=== PATIENT | male | born 1945 | race Caucasian/White ===

== ENCOUNTER 2017-04-09 15:22 | Inpatient (IN) ==
[~2017-04-09 15:22] MED LIST: ACETAMINOPHEN 325 MG TABLET PO PRN; DEXTROSE 50% 25 GM/50 ML VIAL IV PRN; GLUCAGON 1 MG VIAL IM PRN; ONDANSETRON 4 MG/2 ML VIAL IV PRN; metroNIDAZOLE INJ 500 MG in PREMIX 1 EACH IV SCH
[2017-04-09] MEDS ORDERED: ONDANSETRON 4 MG/2 ML VIAL IV PRN (17:35)
[2017-04-09] MEDS ORDERED: ACETAMINOPHEN 325 MG TABLET PO PRN (17:35)
[2017-04-09] MEDS ORDERED: HYDROmorphone 2 MG/1 ML VIAL IV PRN (17:35)
[2017-04-09] MEDS ORDERED: GLUCAGON 1 MG VIAL IM PRN (17:35)
[2017-04-09] MEDS ORDERED: DEXTROSE 50% 25 GM/50 ML VIAL IV PRN (17:35)
[2017-04-09 18:30] LABS: Basophils % 0.5 % (0.0-0.8); Eosinophils # 0.1 10*3/uL (0.0-0.87); Eosinophils % 1.6 % (0.00-10.9); Hematocrit 41.2 VOL% (42.0-52.0); Hemoglobin 13.7 GM/DL (14.0-18.0); Immature Granulocytes % 0.3 %; Immature Granulocytes Absolute 0.02 #; Lymphocytes # 1.3 10*3/uL (1.4-4.0); Lymphocytes % 17.9 % (21.2-54.2); Mean Corpuscular HGB Conc 33.3 GM/DL (32-36); Mean Corpuscular Hemoglobin 29 PG (27-34); Mean Corpuscular Volume 88.2 FL (87-102); Mean Platelet Volume 12.5 FL (9.6-12.0); Monocytes # 0.6 10*3/uL (0.11-0.8); Monocytes % 8.7 % (1.7-12.7); Neutrophils # 5.2 10*3/uL (1.4-7.4); Platelet Count 146 T/CUMM (130-400); Red Blood Count 4.67 MC/CUMM (3.8-5.5); Red Cell Distribution Width 15.6 % (9.3-17.3); White Blood Count 7.3 T/CUMM (4-12)
[2017-04-09 19:10] LABS: Albumin 3.5 G/DL (3.4-5.0); Bilirubin,Total 1.3 MG/DL (0.2-1.0); Potassium 4.8 MMOL/L (3.5-5.1); Total Protein 7.7 G/DL (6.4-8.3)
[2017-04-09] MEDS: SODIUM CHLORIDE 0.45% 1,000 ML IV SCH (19:43)
[2017-04-09] MEDS: metroNIDAZOLE INJ 500 MG in PREMIX 1 EACH IV SCH (19:43)
[2017-04-09] MEDS: PIPERACILLIN/TAZOBACTAM 3,375 MG in SODIUM CHLORIDE 0.9% 100 ML IV SCH (21:59)
[2017-04-09] MEDS: CIPROFLOXACIN 500 MG TABLET PO SCH (21:59)
[2017-04-09] MEDS: DOCUSATE SODIUM 100 MG CAPSULE PO SCH (21:59)
[2017-04-09] MEDS: INSULIN REGULAR 100 UNIT/ML SUBCUT SCH (22:09)
[2017-04-09] MEDS: INSULIN ASPART PROTAMINE/ASPART 70/30 100 UNIT/ML SUBCUT SCH (22:09)
[2017-04-10] MEDS: metroNIDAZOLE INJ 500 MG in PREMIX 1 EACH IV SCH ×3 (01:47→18:39)
[2017-04-10] MEDS: PIPERACILLIN/TAZOBACTAM 3,375 MG in SODIUM CHLORIDE 0.9% 100 ML IV SCH ×3 (04:29→21:55)
[2017-04-10] MEDS ORDERED: ceFAZolin 2,000 MG in PREMIX 1 EACH IV ONE (06:00)
[2017-04-10] MEDS: SODIUM CHLORIDE 0.45% 1,000 ML IV SCH ×3 (06:42→18:38)
[2017-04-10] MEDS: LEVOTHYROXINE 50 MCG TABLET PO SCH (06:43)
[2017-04-10] MEDS: INSULIN REGULAR 100 UNIT/ML SUBCUT SCH ×4 (09:00→21:50)
[2017-04-10] MEDS ORDERED: PANTOPRAZOLE 40 MG TABLET PO SCH (09:00)
[2017-04-10] MEDS: INSULIN ASPART PROTAMINE/ASPART 70/30 100 UNIT/ML SUBCUT SCH ×2 (09:24→21:55)
[2017-04-10] MEDS: ASPIRIN CHEW 81 MG TABLET PO SCH (09:24)
[2017-04-10] MEDS: PANTOPRAZOLE 40 MG TABLET PO SCH (09:29)
[2017-04-10] MEDS: LISINOPRIL 2.5 MG TABLET PO SCH (09:29)
[2017-04-10] MEDS ORDERED: BUPIVACAINE 0.25% 50 ML VIAL ONE ×2 (13:08→13:33)
[2017-04-10] MEDS ORDERED: PROPOFOL 200 MG/20 ML VIAL IV ONE (14:23)
[2017-04-10] MEDS ORDERED: fentaNYL 100 MCG/2 ML VIAL ONE (14:23)
[2017-04-10] MEDS ORDERED: MIDAZOLAM 2 MG/2 ML VIAL ONE ×2 (14:24)
[2017-04-10] MEDS ORDERED: HYDROmorphone 2 MG/1 ML VIAL IV PRN (14:29)
[2017-04-10] MEDS ORDERED: ONDANSETRON 4 MG/2 ML VIAL IV PRN (14:29)
[2017-04-10] MEDS: CIPROFLOXACIN 500 MG TABLET PO SCH ×2 (16:35→21:55)
[2017-04-10] MEDS: PIOGLITAZONE 45 MG TABLET PO SCH (16:35)
[2017-04-10] MEDS: SIMVASTATIN 40 MG TABLET PO SCH (16:36)
[2017-04-10] MEDS: DOCUSATE SODIUM 100 MG CAPSULE PO SCH ×2 (16:36→21:55)
[2017-04-10] MEDS: FUROSEMIDE 20 MG TABLET PO SCH (16:36)
[2017-04-10] MEDS: ceFAZolin 2,000 MG in PREMIX 1 EACH IV SCH (21:51)
[2017-04-11] MEDS: SODIUM CHLORIDE 0.45% 1,000 ML IV SCH ×3 (02:56→19:17)
[2017-04-11] MEDS: metroNIDAZOLE INJ 500 MG in PREMIX 1 EACH IV SCH ×3 (02:56→17:57)
[2017-04-11] MEDS: PIPERACILLIN/TAZOBACTAM 3,375 MG in SODIUM CHLORIDE 0.9% 100 ML IV SCH ×3 (05:18→20:57)
[2017-04-11] MEDS: ceFAZolin 2,000 MG in PREMIX 1 EACH IV SCH (05:22)
[2017-04-11] MEDS: LEVOTHYROXINE 50 MCG TABLET PO SCH (05:45)
[2017-04-11 06:48] LABS: Basophils % 0.8 % (0.0-0.8); Eosinophils # 0.1 10*3/uL (0.0-0.87); Eosinophils % 2.3 % (0.00-10.9); Hematocrit 38.9 VOL% (42.0-52.0); Immature Granulocytes % 0.8 %; Immature Granulocytes Absolute 0.04 #; Lymphocytes # 1.1 10*3/uL (1.4-4.0); Lymphocytes % 19.7 % (21.2-54.2); Mean Corpuscular HGB Conc 33.4 GM/DL (32-36); Mean Corpuscular Hemoglobin 30 PG (27-34); Mean Corpuscular Volume 88.4 FL (87-102); Mean Platelet Volume 12.5 FL (9.6-12.0); Monocytes # 0.4 10*3/uL (0.11-0.8); Monocytes % 8.1 % (1.7-12.7); Neutrophils # 3.7 10*3/uL (1.4-7.4); Neutrophils % 68.3 % (38.7-73.9); Platelet Count 123 T/CUMM (130-400); Red Cell Distribution Width 15.5 % (9.3-17.3); White Blood Count 5.3 T/CUMM (4-12)
[2017-04-11 07:14] LABS: Calcium 8.9 MG/DL (8.5-10.1); Osmolality,Calculated 276.2 MOS/KG (273-304); Potassium 4.6 MMOL/L (3.5-5.1)
[2017-04-11] MEDS: INSULIN REGULAR 100 UNIT/ML SUBCUT SCH ×4 (09:50→21:01)
[2017-04-11] MEDS: LISINOPRIL 2.5 MG TABLET PO SCH (09:51)
[2017-04-11] MEDS: CIPROFLOXACIN 500 MG TABLET PO SCH ×2 (09:52→20:54)
[2017-04-11] MEDS: DOCUSATE SODIUM 100 MG CAPSULE PO SCH ×2 (09:52→20:54)
[2017-04-11] MEDS: PANTOPRAZOLE 40 MG TABLET PO SCH (09:52)
[2017-04-11] MEDS: ASPIRIN CHEW 81 MG TABLET PO SCH (09:52)
[2017-04-11] MEDS: FUROSEMIDE 20 MG TABLET PO SCH (09:52)
[2017-04-11] MEDS: SIMVASTATIN 40 MG TABLET PO SCH (09:52)
[2017-04-11] MEDS: INSULIN ASPART PROTAMINE/ASPART 70/30 100 UNIT/ML SUBCUT SCH ×2 (09:54→21:40)
[2017-04-11] MEDS: PIOGLITAZONE 45 MG TABLET PO SCH (09:54)
[2017-04-11] MEDS ORDERED: SKIN HEALING OINT (AQUAPHOR) 50 GM TUBE TOP PRN (14:56)
[2017-04-11] MEDS: GENTAMICIN 0.1% CREAM 15 GM TUBE TOP SCH ×2 (16:27→21:37)
[2017-04-11] MEDS: SODIUM HYPOCHLORITE 0.25% IRRIG 473 ML BOTTLE TOP SCH (16:27)
[2017-04-12] MEDS: SODIUM CHLORIDE 0.45% 1,000 ML IV SCH ×8 (01:50→23:30)
[2017-04-12] MEDS: metroNIDAZOLE INJ 500 MG in PREMIX 1 EACH IV SCH ×3 (02:16→19:30)
[2017-04-12] MEDS: PIPERACILLIN/TAZOBACTAM 3,375 MG in SODIUM CHLORIDE 0.9% 100 ML IV SCH ×3 (04:45→21:16)
[2017-04-12] MEDS: LEVOTHYROXINE 50 MCG TABLET PO SCH (05:40)
[2017-04-12] MEDS: INSULIN REGULAR 100 UNIT/ML SUBCUT SCH ×12 (07:40→21:20)
[2017-04-12] MEDS: SIMVASTATIN 40 MG TABLET PO SCH (09:25)
[2017-04-12] MEDS: PIOGLITAZONE 45 MG TABLET PO SCH (09:25)
[2017-04-12] MEDS: LISINOPRIL 2.5 MG TABLET PO SCH (09:26)
[2017-04-12] MEDS: ASPIRIN CHEW 81 MG TABLET PO SCH (09:26)
[2017-04-12] MEDS: DOCUSATE SODIUM 100 MG CAPSULE PO SCH ×2 (09:26→21:11)
[2017-04-12] MEDS: CIPROFLOXACIN 500 MG TABLET PO SCH ×2 (09:26→21:11)
[2017-04-12] MEDS: FUROSEMIDE 20 MG TABLET PO SCH (09:26)
[2017-04-12] MEDS: PANTOPRAZOLE 40 MG TABLET PO SCH (09:26)
[2017-04-12] MEDS: INSULIN ASPART PROTAMINE/ASPART 70/30 100 UNIT/ML SUBCUT SCH ×2 (09:27→21:11)
[2017-04-12] MEDS: SODIUM HYPOCHLORITE 0.25% IRRIG 473 ML BOTTLE TOP SCH (13:09)
[2017-04-12] MEDS: GENTAMICIN 0.1% CREAM 15 GM TUBE TOP SCH ×3 (13:09→21:25)
[2017-04-12] MEDS: CLINDAMYCIN INJ 600 MG in PREMIX 1 EACH IV SCH ×6 (14:50→18:08)
[2017-04-13] MEDS: CLINDAMYCIN INJ 600 MG in PREMIX 1 EACH IV SCH ×2 (01:19→10:53)
[2017-04-13] MEDS: SODIUM CHLORIDE 0.45% 1,000 ML IV SCH ×3 (02:08→11:47)
[2017-04-13] MEDS: metroNIDAZOLE INJ 500 MG in PREMIX 1 EACH IV SCH ×2 (02:10→11:47)
[2017-04-13] MEDS: PIPERACILLIN/TAZOBACTAM 3,375 MG in SODIUM CHLORIDE 0.9% 100 ML IV SCH (04:45)
[2017-04-13] MEDS: LEVOTHYROXINE 50 MCG TABLET PO SCH (06:49)
[2017-04-13] MEDS: INSULIN REGULAR 100 UNIT/ML SUBCUT SCH ×2 (10:17)
[2017-04-13] MEDS: INSULIN ASPART PROTAMINE/ASPART 70/30 100 UNIT/ML SUBCUT SCH (10:18)
[2017-04-13] MEDS: PIOGLITAZONE 45 MG TABLET PO SCH (10:47)
[2017-04-13] MEDS: LISINOPRIL 2.5 MG TABLET PO SCH (10:47)
[2017-04-13] MEDS: ASPIRIN CHEW 81 MG TABLET PO SCH (10:48)
[2017-04-13] MEDS: PANTOPRAZOLE 40 MG TABLET PO SCH (10:48)
[2017-04-13] MEDS: FUROSEMIDE 20 MG TABLET PO SCH (10:49)
[2017-04-13] MEDS: CIPROFLOXACIN 500 MG TABLET PO SCH (10:49)
[2017-04-13] MEDS: SIMVASTATIN 40 MG TABLET PO SCH (10:49)
[2017-04-13] MEDS: DOCUSATE SODIUM 100 MG CAPSULE PO SCH (10:56)
[2017-04-13] MEDS: GENTAMICIN 0.1% CREAM 15 GM TUBE TOP SCH (11:20)
[2017-04-13] MEDS: SODIUM HYPOCHLORITE 0.25% IRRIG 473 ML BOTTLE TOP SCH (11:20)
[2017-04-13 11:55] VITALS: BP 99/67
== END 2017-04-13 12:32 | disposition home health service (06) | DRG 982 ==
LOC: N.3E 15:22
PROVIDERS: ADMIT Specialist; ATTEND Specialist

== ENCOUNTER 2018-12-03 12:06 | Observation (INO) ==
[2018-12-03 14:15] LABS: Basophils % 0.6 % (0.0-0.8); Eosinophils # 0.1 10*3/uL (0.0-0.87); Eosinophils % 2.1 % (0.00-10.9); Hematocrit 27.5 VOL% (42.0-52.0); Hemoglobin 8.4 GM/DL (14.0-18.0); Immature Granulocytes % 0.6 %; Immature Granulocytes Absolute 0.03 #; Lymphocytes # 0.6 10*3/uL (1.4-4.0); Mean Corpuscular HGB Conc 30.5 GM/DL (32-36); Mean Corpuscular Volume 83.3 FL (87-102); Mean Platelet Volume 11.9 FL (9.6-12.0); Monocytes % 7.6 % (1.7-12.7); Neutrophils % 77.1 % (38.7-73.9); Platelet Count 130 T/CUMM (130-400); Red Cell Distribution Width 18.2 % (9.3-17.3); White Blood Count 5.2 T/CUMM (4-12)
[2018-12-03 14:25] LABS: INR 1.2; PT Patient Result 12.7 SECS (9.6-12.2)
[2018-12-03 14:37] LABS: Albumin 2.8 G/DL (3.4-5.0); Bilirubin,Total 0.9 MG/DL (0.2-1.0); Calcium 8.9 MG/DL (8.5-10.1); Osmolality,Calculated 292.3 MOS/KG (273-304); Total Protein 7.9 G/DL (6.4-8.3)
[2018-12-03] MEDS ORDERED: PANTOPRAZOLE INJ 80 MG in SODIUM CHLORIDE 0.9% 100 ML IV ONE (14:46)
[2018-12-03] MEDS ORDERED: PANTOPRAZOLE INJ 200 MG in SODIUM CHLORIDE 0.9% 250 ML IV SCH (15:00)
[2018-12-03] MEDS ORDERED: GLUCAGON 1 MG VIAL IM PRN (15:56)
[2018-12-03] MEDS ORDERED: DEXTROSE 50% 25 GM/50 ML VIAL IV PRN (15:56)
[2018-12-03] MEDS ORDERED: ACETAMINOPHEN 325 MG TABLET PO PRN (15:56)
[2018-12-03] MEDS ORDERED: ONDANSETRON 4 MG/2 ML VIAL IV PRN (15:56)
[2018-12-03] MEDS: INSULIN REGULAR 100 UNIT/ML SUBCUT SCH ×2 (18:44→21:16)
[2018-12-03 18:53] LABS: Basophils % 0.6 % (0.0-0.8); Eosinophils # 0.1 10*3/uL (0.0-0.87); Eosinophils % 2.4 % (0.00-10.9); Hemoglobin 8.8 GM/DL (14.0-18.0); Immature Granulocytes % 0.4 %; Immature Granulocytes Absolute 0.02 #; Lymphocytes # 0.8 10*3/uL (1.4-4.0); Lymphocytes % 16.4 % (21.2-54.2); Mean Corpuscular HGB Conc 30.3 GM/DL (32-36); Mean Corpuscular Volume 83.8 FL (87-102); Mean Platelet Volume 12.4 FL (9.6-12.0); Monocytes % 7.7 % (1.7-12.7); Neutrophils % 72.5 % (38.7-73.9); Platelet Count 139 T/CUMM (130-400); Red Blood Count 3.46 MC/CUMM (3.8-5.5); Red Cell Distribution Width 18.5 % (9.3-17.3); White Blood Count 5.1 T/CUMM (4-12)
[2018-12-03] MEDS: PANTOPRAZOLE 40 MG VIAL IV SCH (21:15)
[2018-12-04 01:04] LABS: Basophils % 0.8 % (0.0-0.8); Eosinophils # 0.2 10*3/uL (0.0-0.87); Eosinophils % 3.7 % (0.00-10.9); Hemoglobin 8.2 GM/DL (14.0-18.0); Immature Granulocytes % 0.6 %; Immature Granulocytes Absolute 0.03 #; Lymphocytes # 0.7 10*3/uL (1.4-4.0); Lymphocytes % 13.6 % (21.2-54.2); Mean Corpuscular HGB Conc 30.4 GM/DL (32-36); Mean Corpuscular Volume 84.1 FL (87-102); Mean Platelet Volume 12.2 FL (9.6-12.0); Monocytes % 8.5 % (1.7-12.7); Neutrophils % 72.8 % (38.7-73.9); Platelet Count 127 T/CUMM (130-400); Red Blood Count 3.21 MC/CUMM (3.8-5.5); Red Cell Distribution Width 18.2 % (9.3-17.3); White Blood Count 5.1 T/CUMM (4-12)
[2018-12-04 05:28] LABS: Basophils % 0.8 % (0.0-0.8); Eosinophils # 0.1 10*3/uL (0.0-0.87); Eosinophils % 3.3 % (0.00-10.9); Hematocrit 27.3 VOL% (42.0-52.0); Hemoglobin 8.3 GM/DL (14.0-18.0); Immature Granulocytes % 0.5 %; Immature Granulocytes Absolute 0.02 #; Lymphocytes # 0.6 10*3/uL (1.4-4.0); Lymphocytes % 14.5 % (21.2-54.2); Mean Corpuscular HGB Conc 30.4 GM/DL (32-36); Monocytes % 7.5 % (1.7-12.7); Neutrophils % 73.4 % (38.7-73.9); Platelet Count 118 T/CUMM (130-400); Red Blood Count 3.21 MC/CUMM (3.8-5.5); Red Cell Distribution Width 18.3 % (9.3-17.3)
[2018-12-04 06:07] LABS: Ferritin 33.8 ng/ml (26-388)
[2018-12-04 06:09] LABS: Calcium 8.8 MG/DL (8.5-10.1); Osmolality,Calculated 290.4 MOS/KG (273-304)
[2018-12-04 06:13] LABS: Folate 12.2 NG/ML (5.4-24.0); Vitamin B12 729 PG/ML (211-911)
[2018-12-04 06:15] LABS: % Iron Saturation 6.6 % (18-50)
[2018-12-04 07:35] LABS: Sedimentation Rate-Westergren 85 MM/HR (0-20)
[2018-12-04] MEDS ORDERED: FUROSEMIDE 40 MG/4 ML VIAL IV SCH (08:00)
[2018-12-04] MEDS: PANTOPRAZOLE 40 MG VIAL IV SCH (08:24)
[2018-12-04] MEDS: INSULIN REGULAR 100 UNIT/ML SUBCUT SCH ×2 (08:31→11:51)
[2018-12-04] MEDS ORDERED: LISINOPRIL 2.5 MG TABLET PO SCH (09:00)
[2018-12-04] MEDS ORDERED: SIMVASTATIN 40 MG TABLET PO SCH (09:00)
[2018-12-04] MEDS ORDERED: LEVOTHYROXINE 50 MCG TABLET PO SCH (09:00)
[2018-12-04 10:54] LABS: Eosinophils,Pleural Fluid 2 %; Lymphocytes,Pleural Fluid 89 %; Monocytes,Pleural Fluid 3 %; Neutrophils,Pleural Fluid 6 %; RBC,Pleural Fluid 27033 T/CUMM
[2018-12-04] MEDS ORDERED: IBUPROFEN 600 MG TABLET PO PRN (12:11)
[2018-12-04 12:38] VITALS: BP 107/61
[2018-12-05 08:27] LABS: Hemoglobin A1 (Alkaline) 97.6 % (96.5-98.5); Hemoglobin A2 (Alkaline) 2.4 % (1.5-3.5)
== END 2018-12-04 13:26 | disposition home or self-care (01) ==
LOC: N.ED 12:06 → N.EDINP 12:06 → N.2E 18:05
PROVIDERS: ADMIT Internal Medicine Geriatric Medicine; ATTEND Internal Medicine Geriatric Medicine